=== PATIENT | female | born 1975 | race Caucasian/White ===

== ENCOUNTER 2020-02-15 13:30 | Outpatient (CLI) | payer OTHER, SELFPAY ==
--- NOTE | ~2020-02-15 | XR_ITS ---
XR toe 1st LT min 2V DATE: 02/15/2020 13:46 INDICATION: Left toe pain. Swelling. TECHNIQUE: 4 views COMPARISON: None FINDINGS: Status post bunionectomy; screw through the neck of first metatarsal bone. No fracture, dislocation, periosteal reaction or bone destruction. IMPRESSION: Status post bunionectomy Reviewed, dictated and finalized at location B. IMPRESSION: Status post bunionectomy
[2020-02-15 14:04] LABS: Basophils Absolute Auto 0.1 K/mm3 (0.0-0.1); Basophils Percent Auto 0.8 % (0.2-1.2); Eosinophils Absolute Auto 0.1 K/mm3 (0-0.3); Eosinophils Percent Auto 1.1 % (0-4.4); Hematocrit 38.9 % (37.0-47.0); Hemoglobin 13.5 g/dL (12.0-15.0); Immature Granulocyte Absolute 0.05 K/mm3 (0.00-0.031); Immature Granulocyte Percent A 0.5 % (0-0.5); Lymphocytes Absolute Auto 1.77 K/mm3 (0.9-3.2); Lymphocytes Percent Auto 17.9 % (18.3-44.2); Mean Corpuscular HGB Conc 34.7 g/dl (32-36); Mean Corpuscular Hemoglobin 30.8 pg (26-34); Mean Corpuscular Volume 88.8 fl (80-100); Mean Platelet Volume 10.1 fl (7.4-10.4); Monocytes Absolute Auto 0.7 K/mm3 (0.1-0.6); Monocytes Percent Auto 7.4 % (2.6-8.5); Neutrophils Absolute Auto 7.2 K/mm3 (1.3-6.7); Neutrophils Percent Auto 72.3 % (45.5-73.1); Platelet Count Result 264 k/mm3 (150-375); Red Blood Count 4.38 M/mm3 (4.2-5.4); White Blood Count 9.9 K/mm3 (4.5-10.0)
[2020-02-15 14:15] LABS: Blood Urea Nitrogen 14 mg/dL (7-17); Calcium 8.8 mg/dL (8.4-10.2); Carbon Dioxide 24 mmol/L (22-30); Chloride 104 mmol/L (98-107); Estimated Glomerular Filt Rate > 60; Glucose 119 mg/dL (65-105); Potassium 4.1 mmol/L (3.4-5.0); Sodium 136 mmol/L (137-145); Uric Acid 4.1 mg/dL (2.5-7.5)
== END 2020-02-15 13:31 | disposition home or self-care (01) ==
PROVIDERS: PCP Family Medicine; Visit Provider Nurse Practitioner Family
DX: M79.675 Pain in left toe(s) (principal); M79.89 Other specified soft tissue disorders
CPT/HCPCS: 36415; 73660; 80048; 84550; 85025

== ENCOUNTER 2020-02-16 13:01 | Outpatient (CLI) | payer OTHER, SELFPAY ==
[2020-02-16 13:37] LABS: CRP 1.8 mg/dL (<1.0); Rheumatoid Factor < 8.6 IU/ML (<12)
[2020-02-16 13:56] LABS: Erythrocyte Sedimentation Rate 25 mm/hr (0-20)
[2020-02-16 14:09] LABS: Free T4 Free Thyroxine 1.13 ng/mL (0.78-2.19)
[2020-02-19 11:47] LABS: ANA Cascade Screen Negative (Negative)
== END 2020-02-16 13:02 | disposition home or self-care (01) ==
PROVIDERS: PCP Family Medicine; Visit Provider Nurse Practitioner Family
DX: M25.40 Effusion, unspecified joint (principal); E03.9 Hypothyroidism, unspecified
CPT/HCPCS: 36415; 84439; 84443; 85652; 86038; 86140; 86430

== ENCOUNTER 2020-05-04 09:37 | Outpatient (CLI) | payer OTHER, SELFPAY ==
--- NOTE | ~2020-05-04 | MM_ITS ---
EXAMINATION: MM screening [facility] BI w mega HISTORY: Screening TECHNIQUE: Craniocaudal and mediolateral oblique 3-D tomosynthesis images were obtained and synthetic 2-D images were generated. CAD analysis was submitted and interpreted. COMPARISON: Comparison to multiple prior studies sequentially, with oldest reviewed study dated 08/15. BREAST PARENCHYMAL COMPOSITION: Breast composed of scattered areas of fibroglandular density. FINDINGS: The left breast is stable without evidence for malignancy. There is a developing cluster of calcifications in the upper aspect of the right breast on MLO view, not seen on CC view. IMPRESSION: 1. Developing cluster of nonspecific right breast calcifications on MLO view. 2. Magnification views are recommended. Additional exaggerated cc views recommended. BI-RADS Category 0: Incomplete: Needs additional imaging evaluation. Reviewed, dictated and finalized at location A. IMPRESSION: 1. Developing cluster of nonspecific right breast calcifications on MLO view. 2. Magnification views are recommended. Additional exaggerated cc views recomme nded. BI-RADS Category 0: Incomplete: Needs additional imaging evaluation.
== END 2020-05-04 09:38 | disposition home or self-care (01) ==
PROVIDERS: PCP Family Medicine; Visit Provider Family Medicine
DX: Z12.31 Encounter for screening mammogram for malignant neoplasm of breast (principal); R92.8 Other abnormal and inconclusive findings on diagnostic imaging of breast
CPT/HCPCS: 77063; 77067

== ENCOUNTER 2020-06-03 13:42 | Outpatient (CLI) | payer OTHER, SELFPAY ==
--- NOTE | ~2020-06-03 | MM_ITS ---
EXAMINATION: MM diagnostic mammo unilat RT HISTORY: Follow-up developing breast calcifications TECHNIQUE: Additional 3-D tomosynthesis images of the right breast were performed and synthetic 2-D i mages were generated. CAD analysis was submitted and interpreted. COMPARISON: 05/04/2020 BREAST PARENCHYMAL COMPOSITION: Breast composed of scattered areas of fibroglandular density. FINDINGS: There is a developing cluster of pleomorphic calcifications in the upper aspect of the righ t breast on MLO and mediolateral views. These calcifications were not seen on CC view. IMPRESSION: 1. Developing clustered pleomorphic right breast calcifications superior aspect of the right breast. 2. Stereotactic right breast biopsy recommended. BI-RADS category 4, suspicious findings. Reviewed, dictated and finalized at location A. 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
== END 2020-06-03 13:43 | disposition home or self-care (01) ==
LOC: ANHIMG 13:44
PROVIDERS: PCP Family Medicine; Visit Provider Nurse Practitioner Family
DX: R92.8 Other abnormal and inconclusive findings on diagnostic imaging of breast (principal)
CPT/HCPCS: 77065

== ENCOUNTER 2020-06-20 10:50 | Outpatient (CLI) | payer OTHER, SELFPAY ==
--- NOTE | ~2020-06-20 | MM_ITS ---
MM consultation DATE: 06/20/2020 11:01 INDICATION: Patient presented for stereotactic biopsy of calcifications reported as developing clust ered pleomorphic calcifications in the upper aspect of the right breast on MLO and ML views. TECHNIQUE: Digital right rotated lateral craniocaudal view and magnification view. COMPARISON: 06/03/2020 diagnostic right mammogram 05/04/2020 bilateral digital screening mammogram 01/22/2019 diagnostic bilateral digital mammogram 01/02/2019 bilateral digital screening mammogram FINDINGS: Patient has had previous breast surgical procedure. In the very posterior aspect of the mid upper right breast is an area of fat density with calcificati ons, consistent with benign calcified fat necrosis. IMPRESSION: BI-RADS Category 2: Benign calcifications of fat necrosis Recommendation: Routine mammographic screening Stereotactic biopsy is not indicated for these benign calcifications. Reviewed, dictated and finalized at Location A. Reviewed, dictated and finalized at location A. 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
== END 2020-06-20 10:51 | disposition home or self-care (01) ==
PROVIDERS: PCP Family Medicine; Visit Provider Family Medicine
DX: R92.1 Mammographic calcification found on diagnostic imaging of breast (principal)
CPT/HCPCS: 99199

== ENCOUNTER 2020-09-13 10:05 | Outpatient (CLI) | payer OTHER, SELFPAY ==
--- NOTE | 2020-09-13 10:19 | ECG_ITS ---
Measurements Intervals [place] Rate: 53 P: 35 SD: 147 QRS: 16 QRSD: 94 T: 6 QT: 450 QTc: 423 Interpretive Statements SINUS BRADYCARDIA BASELINE ARTIFACT- II, III, AVF BORDERLINE ECG Electronically Signed On 09-13-2020 10:30:50 AIR SAW OPERATOR by Ok Pino D.O.
[2020-09-13 10:39] LABS: Hematocrit 42.1 % (37.0-47.0); Hemoglobin 14.4 g/dL (12.0-15.0); Mean Corpuscular HGB Conc 34.2 g/dl (32-36); Mean Corpuscular Volume 90.5 fl (80-100); Mean Platelet Volume 10.4 fl (7.4-10.4); Platelet Count Result 272 k/mm3 (150-375); Red Blood Count 4.65 M/mm3 (4.2-5.4); Red Cell Distribution Width 11.7 % (11.5-14.5); White Blood Count 7.8 K/mm3 (4.5-10.0)
[2020-09-13 10:50] LABS: Cholesterol 226 mg/dL (0-200); HDL Direct 47 mg/dL; Magnesium 1.7 mg/dL (1.6-2.3); Triglycerides 189 mg/dL (<150)
[2020-09-13 11:01] LABS: LDL Cholesterol Direct 150 mg/dL
[2020-09-13 16:05] LABS: Vitamin D 25 Hydroxy 32.2 ng/mL
== END 2020-09-13 10:06 | disposition home or self-care (01) ==
PROVIDERS: PCP Family Medicine; Visit Provider Physician Assistant Medical
DX: E55.9 Vitamin D deficiency, unspecified (principal); R25.2 Cramp and spasm; E03.9 Hypothyroidism, unspecified; Z13.220 Encounter for screening for lipoid disorders; I10 Essential (primary) hypertension; R07.9 Chest pain, unspecified; R94.31 Abnormal electrocardiogram [ECG] [EKG]
CPT/HCPCS: 36415; 80061; 82306; 83735; 84443; 85027; 93005

== ENCOUNTER 2020-09-22 07:37 | Outpatient (CLI) | payer OTHER, SELFPAY ==
--- NOTE | 2020-09-22 07:41 | ECHO_ITS ---
Patient Info Name: Jolene Kapoor Age: 44 years : 1975 Gender: Female Ht: 60 in Wt: 180 lbs BSA: 1.90 m2 HR: 60 bpm BP: 214 / 131 mmHg Technical Quality: Good Exam Date: 09/22/2020 8:03 AM Exam Location: [facility] Patient Status: Outpatient Admit Date: 09/22/2020 Staff Ordering Physician: Galina Hammer PAC Venereal Disease Investigator: Hernán Holloway RDCS, RT Attending Provider: Galina Hammer Referring Physician: Jaquelin SMITH; Exam Type: CA echo doppler color flow Study Info Indications I10 - Essential (primary) hypertension R01.1 - Cardiac murmur, unspecified Complete two-dimensional, color flow and Doppler transthoracic echocardiogram is performed. Strain analysis performed. Summary 1. Complete two-dimensional, color flow and Doppler transthoracic echocardiogram is performed. 2. Left ventricular chamber dimension is normal. 3. Left ventricular systolic function is normal, estimated at 65-70%. 4. The left ventricular diastolic function is grade II diastolic dysfunction. 5. E/e' 11 is mildly elevated. 6. Global longitudinal strain is normal at -17.3%. 7. Left atrial chamber dimension is mildly enlarged. 8. There is mild mitral valve regurgitation. Left Ventricle E/e' 11 is mildly elevated. Global longitudinal strain is normal at -17.3%. Left ventricular chamber dimension is normal. Left ventricular systolic function is normal, estimated at 65-70%. The left ventricular diastolic function is grade II diastolic dysfunction. Right Ventricle Right ventricular chamber dimension is normal. Right ventricular systolic function is normal. Left Atria Left atrial chamber dimension is mildly enlarged. Right Atria Right atrial chamber dimension is normal. Aortic Valve The aortic valve is trileaflet. There is no aortic valve stenosis. There is no aortic valve regurgitation. Pulmonic Valve There is no pulmonic regurgitation. Mitral Valve There is no mitral valve stenosis. There is mild mitral valve regurgitation. Tricuspid Valve There is no tricuspid valve regurgitation. Pericardium/Pleural There is no pericardial effusion. Inferior Vena Cava Normal inferior vena cava with >50% collapse upon inspiration consistent with normal right atrial pressure, 5 mmHg. Aorta The aortic root size at the sinus of Valsalva is normal. Left Ventricular Outflow Tract Name Value Normal LVOT 2D LVOT Diameter 1.9 cm LVOT Doppler LVOT Peak Gradient 6 mmHg LVOT Mean Gradient 3 mmHg LVOT VTI 30 cm LVOT VTI/AV VTI Ratio 0.7 LVOT Stroke Volume 86 ml LVOT CO 4.9 l/min LVOT CI 2.6 l/min/m2 Mitral Valve Name Value Normal MV Doppler
== END 2020-09-22 07:38 | disposition home or self-care (01) ==
PROVIDERS: PCP Family Medicine; Visit Provider Physician Assistant Medical
DX: R01.1 Cardiac murmur, unspecified (principal); I10 Essential (primary) hypertension; R07.9 Chest pain, unspecified
CPT/HCPCS: 93306

== ENCOUNTER 2020-09-27 10:18 | Outpatient (CLI) | payer OTHER, SELFPAY ==
[2020-10-01 16:41] LABS: ANA Cascade Screen Negative (Negative)
== END 2020-09-27 10:19 | disposition home or self-care (01) ==
PROVIDERS: PCP Family Medicine; Visit Provider Physician Assistant Medical
DX: R61 Generalized hyperhidrosis (principal)
CPT/HCPCS: 36415; 86038

== ENCOUNTER 2022-09-13 17:04 | Outpatient (CLI) | payer OTHER, SELFPAY ==
--- NOTE | ~2022-09-13 | MM_ITS ---
EXAMINATION: MM screening [facility] BI w mega HISTORY: Screening mammogram TECHNIQUE: Craniocaudal and mediolateral oblique 3-D tomosynthesis images were obtained and synthetic 2-D images were generated. CAD analysis was submitted and interpreted. COMPARISON: 06/03/2020 diagnostic right mammogram 05/04/2020, 01/22/2019, 01/02/2019, 08/19/2017, 08/15/2016 bilateral mammogram examinations BREAST PARENCHYMAL COMPOSITION: There are scattered areas of fibroglandular density. FINDINGS: Occasional bilateral benign calcifications are noted. There is no evidence of suspicious ma ss, calcification, or architectural distortion to suggest malignancy in either breast. There has been no suspicious interval change. IMPRESSION: 1. No mammographic evidence of malignancy. 2. Recommend routine screening mammography in one year. BI-RADS Category 2: Benign finding(s). Reviewed, dictated and finalized at location A. 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
== END 2022-09-13 17:05 | disposition home or self-care (01) ==
PROVIDERS: PCP Family Medicine; Visit Provider Family Medicine
DX: Z12.31 Encounter for screening mammogram for malignant neoplasm of breast (principal)
CPT/HCPCS: 77063; 77067

== ENCOUNTER 2023-05-07 12:31 | Outpatient (CLI) | payer OTHER, SELFPAY ==
--- NOTE | 2023-05-07 12:37 | ECHO_ITS ---
Patient Info Name: Jolnee Kapoor Age: 47 years : 1975 Gender: Female Ht: 60 in Wt: 163 lbs BSA: 1.80 m2 HR: 71 bpm BP: 126 / 96 mmHg Technical Quality: Fair Exam Date: 05/07/2023 12:44 PM Exam Location: [facility] Patient Status: Outpatient Admit Date: 05/07/2023 Staff Ordering Physician: Galina Hammer PAC Manager Testing: Annette Viera RDCS Attending Provider: Galina Hammer Referring Physician: Jaquelin SMITH; Exam Type: CA echo doppler color flow Study Info Indications I51.89 - Other ill-defined heart diseases Complete two-dimensional, color flow and Doppler transthoracic echocardiogram is performed. Summary 1. Complete two-dimensional, color flow and Doppler transthoracic echocardiogram is performed. 2. Left ventricular chamber dimension is normal. 3. Left ventricular systolic function is normal, estimated at 60-65%. 4. There is mild concentric increased left ventricular wall thickness. 5. The left ventricular diastolic function is grade I diastolic dysfunction. 6. E/e' 7 is not elevated. 7. There is mild aortic valve sclerosis. 8. No pulmonary hypertension, estimated pulmonary arterial systolic pressure is 25 mmHg. Left Ventricle E/e' 7 is not elevated. Left ventricular chamber dimension is normal. Left ventricular systolic function is normal, estimated at 60-65%. There is mild concentric increased left ventricular wall thickness. The left ventricular diastolic function is grade I diastolic dysfunction. Right Ventricle Right ventricular chamber dimension is normal. Right ventricular systolic function is normal. Left Atria Left atrial chamber dimension is normal. Right Atria Right atrial chamber dimension is normal. Aortic Valve The aortic valve is trileaflet. There is mild aortic valve sclerosis. There is no aortic valve stenosis. There is no aortic valve regurgitation. Pulmonic Valve There is no pulmonic regurgitation. Mitral Valve There is no mitral valve stenosis. There is no mitral valve regurgitation. Tricuspid Valve There is no tricuspid valve regurgitation. No pulmonary hypertension, estimated pulmonary arterial systolic pressure is 25 mmHg. Pericardium/Pleural There is no pericardial effusion. Inferior Vena Cava Normal inferior vena cava with >50% collapse upon inspiration consistent with normal right atrial pressure, 5 mmHg. Aorta The aortic root size at the sinus of Valsalva is normal. Left Ventricular Outflow Tract Name Value Normal LVOT 2D LVOT Diameter 1.9 cm LVOT Doppler LVOT Peak Gradient 4 mmHg LVOT Mean Gradient 3 mmHg LVOT VTI 22 cm LVOT VTI/AV VTI Ratio 0.8 LVOT Stroke Volume 60 ml LVOT CO 4.1 l/min LVOT CI 2.3 l/min/m2 Pulmonic Valve Name Value Normal RVOT Doppler R
== END 2023-05-07 12:32 | disposition home or self-care (01) ==
PROVIDERS: PCP Family Medicine; Visit Provider Physician Assistant Medical
DX: I51.89 Other ill-defined heart diseases (principal)
CPT/HCPCS: 93306

== ENCOUNTER 2023-10-07 12:24 | Outpatient (CLI) | payer OTHER, SELFPAY ==
--- NOTE | ~2023-10-07 | MM_ITS ---
EXAMINATION: MM screening [facility] BI w mega HISTORY: Screening mammogram TECHNIQUE: Craniocaudal and mediolateral oblique 3-D tomosynthesis images were obtained and synthetic 2-D images were generated. CAD analysis was submitted and interpreted. COMPARISON: September 13, 2022 bilateral screening mammogram 06/03/2020 diagnostic right mammogram 05/04/2020 bilateral screening mammogram BREAST PARENCHYMAL COMPOSITION: There are scattered areas of fibroglandular density... FINDINGS: Occasional benign calcifications. There is no evidence of suspicious mass, calcification, o r architectural distortion to suggest malignancy in either breast. There has been no suspicious inter madi change. IMPRESSION: 1. No mammographic evidence of malignancy. 2. Recommend routine screening mammography in one year. BI-RADS Category 2: Benign finding(s). Reviewed, dictated and finalized at location A.
== END 2023-10-07 12:25 ==
PROVIDERS: PCP Family Medicine; Visit Provider Family Medicine
DX: Z12.31 Encounter for screening mammogram for malignant neoplasm of breast (principal)
CPT/HCPCS: 77063; 77067

== ENCOUNTER 2024-04-01 17:29 | Emergency (ER) | payer OTHER, SELFPAY ==
--- NOTE | ~2024-04-01 | XR_ITS ---
EXAMINATION: XR wrist LT min 3V DATE: 04/01/2024 18:00 INDICATION: Left wrist pain. TECHNIQUE: 4 views of left wrist were obtained. COMPARISON: None. FINDINGS: Alignment is normal. There is a 2 mm focus of ossification dorsal to the carpus on the late ral view. Joint spaces are normal. IMPRESSION: 1. 2 mm ossification dorsal to the carpus on the lateral view, which may be an age-indeterminate avul jovanni fracture of dorsal pole of triquetrum. Reviewed, dictated and finalized at location A. IMPRESSION: 1. 2 mm ossification dorsal to the carpus on the lateral view, which may be an age-indeterminate avulsion fracture of dorsal pole of triquetrum.
--- NOTE | 2024-04-01 17:30 | ED.UPPEXIN ---
HPI - Extremity Injury (Upper) General Chief Complaint: Extremity Problem,Nontraumatic Stated Complaint: L WRIST/HAND PAIN/SWELLING Time Seen by Provider: 04/01/24 17:30 Source: patient Mode of arrival: ambulatory Limitations: no limitations History of Present Illness HPI narrative: Jolene is a 40-year-old female patient presenting to the clinic today with complaints of left wrist/hand pain and swelling that just started this morning. She reports no known injury. States the pain is to the top of the wrist and radiates into her hand when she flexes or extends the wrist. No obvious swelling Related Data Home Medications Medication Instructions Recorded Confirmed cholecalciferol (vitamin D3) 75 mcg PO DAILY 04/09/23 11/29/23 cyanocobalamin (vitamin B-12) 100 mcg subcut WEEKLY 08/09/23 11/29/23 1,000 mcg/mL injection solution Allergies Allergy/AdvReac Type Severity Reaction Status Date / Time lisinopril Allergy Intermediate angiodema Verified 11/29/23 11:11 Review of Systems Review of Systems: Pertinent positives per HPI. Patient denies any fever, chills, rash, headache, visual changes, dizziness, cough, runny nose, sore throat, shortness of breath, chest pain, palpitations, nausea, vomiting, diarrhea, constipation, abdominal pain, or any urinary issues. [facility] Past Medical History Medical History Adult BMI 32.0-32.9 kg/sq m Adult BMI 34.0-34.9 kg/sq m BMI 29.0-29.9,adult BMI 35.0-35.9,adult BMI 36.0-36.9,adult Macular hole of left eye Sinusitis Wheezing Surgical History Surgical History Hx of colonoscopy Family History Family History Father No problems noted. Mother No problems noted. 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 There is no relevant family history pertinent to the patient complaint. Exam Narrative: General: Well-developed, well nourished, in no apparent distress Head: Normocephalic, atraumatic. Cardio: Regular rate and rhythm, s1 and s2 normal, no murmur appreciated. Resp: Clear to auscultation bilaterally, no rhonchi, rales, wheezing or rubs. Musculoskeletal: No deformity, tender to palpation over the dorsal wrist, pain with flexion and extension of the left wrist, no obvious swelling, grossly normal range of motion, muscle strength strong and equal, peripheral pulse strong, no edema, no cyanosis, normal gait and station Course Course Emergency Course: Portions of this record may have been created with voice recognition software. Level of Care: Express Care Visit Vital Signs Vital signs: Vital Signs Temperature 36.6 C 04/01/24 17:41 Pulse Rate 68 04/01/24 17:41 Respiratory Rate 16 04/01/24 17:41 Blood Pressure 162/99 H 04/01/24 17:41 Pulse Oximetry 99 04/01/24 17:41 Temperature 36.6 C 04/01/24 17:41 Pulse Rate 68 04/01/24 17:41 Respiratory Rate 16 04/01/24 17:41 Blood Pressure
[2024-04-01 17:41] VITALS: BP 162/99; PULSE 68; RESP 16; TEMP 36.6; O2SAT 99
--- NOTE | 2024-04-01 18:00 | PC.NURSE ---
PT REQUESTED XRAY OF WRIST.
== END 2024-04-01 18:15 | disposition home or self-care (01) ==
PROVIDERS: Emergency Provider Nurse Practitioner Family; PCP Family Medicine
DX: M25.532 Pain in left wrist (principal)
CPT/HCPCS: 73110; 99213; G0463

== ENCOUNTER 2024-04-02 07:12 | Emergency (ER) | payer OTHER, SELFPAY ==
--- NOTE | ~2024-04-02 | CT_ITS ---
EXAMINATION: CT wrist LT w con DATE: 04/02/2024 08:32 INDICATION: Atraumatic severe left wrist pain TECHNIQUE: High resolution computed tomography (CT) of the left wrist was performed with 100 mL Omnip aque-350 intravenous contrast. Additional sagittal and coronal reconstructions were performed. Automa elsa exposure control and iterative reconstruction technique were employed. The dose-length product wa s 440.70 mGy-cm. COMPARISON: Radiograph dated 04/01/2024 FINDINGS: Bone alignment is normal. No acute fracture. Again seen is a tiny corticated ossific density dorsal t o the triquetrum without evident donor site which could represent either a chronic avulsion fracture or heterotopic ossicle. Mild osteoarthritis at the distal radioulnar joint. Remaining joint spaces ap pear relatively preserved. Lytic lesion with sclerotic margins at the scaphoid waist which extends to the volar margin of the articular surface at the midcarpal joint and which could represent either a geode/degenerative subchondral cyst or chronic erosion. Additional potential small chronic erosions a t the head of the third metacarpal and the base of the fifth proximal phalanx. There is subtle increa sed density along the periphery of the extensor carpi ulnaris tendon at the level of the proximal car pal row which could represent enhancing synovitis or subtle dystrophic calcification. Soft tissues ar e otherwise unremarkable. IMPRESSION: 1. No acute osseous abnormality. 2. A few small lytic lesion with corticated margins at the scaphoid, and third metacarpal and base of the fifth proximal phalanx which could represent degenerative subchondral cysts or chronic erosions. 3. Subtle increased attenuation along the periphery of the extensor carpi ulnaris tendon at the level of the proximal carpal row which could represent either enhancing tenosynovitis or dystrophic calcif ication present in the setting of gout. Reviewed, dictated and finalized at location A. IMPRESSION: 1. No acute osseous abnormality. 2. A few small lytic lesion with corticated margins at the scaphoid, and third metacarpal and base of the fifth proximal phalanx which could represent degener ative subchondral cysts or chronic erosions. 3. Subtle increased attenuation along the periphery of the extensor carpi ulnar is tendon at the level of the proximal carpal row which could represent either enhancing tenosynovitis or dystrophic calcification present in the setting of g out.
[2024-04-02 07:45] VITALS: BP 178/99; PULSE 63; RESP 18; TEMP 36.5; O2SAT 100
--- NOTE | 2024-04-02 07:52 | ED.UPPEXIN ---
HPI - Extremity Injury (Upper) General Chief Complaint: Extremity Injury, Upper Stated Complaint: left hand/wrist pain Time Seen by Provider: 04/02/24 07:18 History of Present Illness HPI narrative: Patient noticed severe pain to her left wrist yesterday, went to an urgent care where an x-ray is done showing a possible fracture; she has no recollection of injury other than potentially having closed a door hard yesterday. Pain with movement, no fevers or chills. Took ibuprofen earlier which helped. Related Data Home Medications Medication Instructions Recorded Confirmed cholecalciferol (vitamin D3) 75 mcg PO DAILY 04/09/23 11/29/23 cyanocobalamin (vitamin B-12) 100 mcg subcut WEEKLY 08/09/23 11/29/23 1,000 mcg/mL injection solution Allergies Allergy/AdvReac Type Severity Reaction Status Date / Time lisinopril Allergy Intermediate angiodema Verified 11/29/23 11:11 Review of Systems Review of Systems: All systems reviewed & are unremarkable except as noted in HPI and below PMFSH Past Medical History Medical History Adult BMI 32.0-32.9 kg/sq m Adult BMI 34.0-34.9 kg/sq m BMI 29.0-29.9,adult BMI 35.0-35.9,adult BMI 36.0-36.9,adult Macular hole of left eye Sinusitis Wheezing Surgical History Surgical History Hx of colonoscopy Family History Family History Father No problems noted. Mother No problems noted. 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 EYES: EOMI, conjunctiva normal ENT: Hearing grossly intact LUNGS: Nonlabored breathing. HEART: Normal radial pulse ABD: Nondistended EXT: Holding wrist, there is slight swelling over the left wrist ulnar dorsal wrist with tenderness, pain with movement at wrist SKIN: Slight swelling left wrist ulnar NEURO: [Alert and oriented x 3. No gross focal sensory or strength deficits.] PSYCH: Normal affect Course Vital Signs Vital signs: Vital Signs Temperature 97.7 F 04/02/24 07:45 Pulse Rate 63 04/02/24 07:45 Respiratory Rate 18 04/02/24 07:45 Blood Pressure 178/99 H 04/02/24 07:45 Pulse Oximetry 100 04/02/24 07:45 Oxygen Delivery Room Air 04/02/24 07:45 Temperature 98 F 04/02/24 10:23 Pulse Rate 60 04/02/24 10:23 Respiratory Rate 16 04/02/24 10:23 Blood Pressure 180/95 H 04/02/24 10:23 Pulse Oximetry 96 04/02/24 10:23 Oxygen Delivery Room Air 04/02/24 07:45 MDM - Extremity Injury (Upper) MDM Narrative Medical decision making narrative: Patient presenting here with wrist pain that is atraumatic, x-ray unremarkable from yesterday, neurovascularly intact but pain with movement of the, would like further evaluation at this time so did obtain a CT wrist, I did discuss the findings with hand surgery on-call who suspects likely tendinitis, recommends anti-inflammatories with follow-up in
[2024-04-02 08:05] LABS: Basophils Absolute Auto 0.1 K/mm3 (0.0-0.1); Eosinophils Absolute Auto 0.1 K/mm3 (0-0.3); Eosinophils Percent Auto 1.4 % (0-4.4); Hematocrit 43.3 % (37.0-47.0); Hemoglobin 14.5 g/dL (12.0-15.0); Immature Granulocyte Absolute 0.02 K/mm3 (0.00-0.031); Immature Granulocyte Percent A 0.3 % (0-0.5); Lymphocytes Absolute Auto 1.57 K/mm3 (0.9-3.2); Lymphocytes Percent Auto 22.7 % (18.3-44.2); Mean Corpuscular HGB Conc 33.5 g/dl (32-36); Mean Corpuscular Hemoglobin 29.7 pg (26-34); Mean Corpuscular Volume 88.5 fl (80-100); Mean Platelet Volume 10.2 fl (7.4-10.4); Monocytes Absolute Auto 0.5 K/mm3 (0.1-0.6); Monocytes Percent Auto 7.1 % (2.6-8.5); Neutrophils Absolute Auto 4.7 K/mm3 (1.3-6.7); Neutrophils Percent Auto 67.5 % (45.5-73.1); Platelet Count Result 253 k/mm3 (150-375); Red Blood Count 4.89 M/mm3 (4.2-5.4); Red Cell Distribution Width 11.8 % (11.5-14.5); White Blood Count 6.9 K/mm3 (4.5-10.0)
[2024-04-02 08:12] LABS: Anion Gap 13 mmol/L (4-12); Blood Urea Nitrogen 15 mg/dL (7-17); Calcium 9.1 mg/dL (8.4-10.2); Carbon Dioxide 26 mmol/L (22-30); Chloride 101 mmol/L (98-107); Estimated CRCL calculation 74 ml/min; Estimated Glomerular Filt Rate > 60; Glucose 96 mg/dL (65-110); Potassium 3.9 mmol/L (3.4-5.0); Sodium 140 mmol/L (137-145)
[2024-04-02 08:48] VITALS: BP 189/92; PULSE 59; RESP 18; O2SAT 100
[2024-04-02 09:45] VITALS: BP 184/93; PULSE 54; RESP 16; O2SAT 100
[2024-04-02] MEDS: KETOROLAC 15 MG/ML VIAL (*BKC) IV PUSH (09:51)
[2024-04-02 10:23] VITALS: BP 180/95; PULSE 60; RESP 16; TEMP 36.6; O2SAT 96
== END 2024-04-02 10:23 | disposition home or self-care (01) ==
PROVIDERS: Emergency Provider Emergency Medicine; PCP Family Medicine
DX: M25.532 Pain in left wrist (principal)
CPT/HCPCS: 29125; 36415; 73201; 80048; 85025; 96374; 99284; J1885; Q9967

== ENCOUNTER 2024-10-20 16:18 | Outpatient (CLI) | payer OTHER, SELFPAY ==
--- NOTE | ~2024-10-20 | MM_ITS ---
EXAMINATION: MM screening [facility] BI w mega HISTORY: Screening TECHNIQUE: Craniocaudal and mediolateral oblique 3-D tomosynthesis images were obtained and synthetic 2-D images were generated. CAD analysis was submitted and interpreted. COMPARISON: 10/07/2023 and dating back to 05/04/2020 BREAST PARENCHYMAL COMPOSITION: There are scattered areas of fibroglandular density. FINDINGS: Punctate calcifications detected bilaterally, stable and benign in appearance, primarily de rmal in origin. Stable parenchymal pattern without suspicious microcalcifications, architectural distortion, discrete masses or significant asymmetry. IMPRESSION: 1. No mammographic evidence of malignancy. 2. Recommend routine screening mammography in one year. BI-RADS Category 2: Benign finding(s). Reviewed, dictated and finalized at location A.
== END 2024-10-20 16:19 | disposition home or self-care (01) ==
LOC: MICIMG 16:19
PROVIDERS: PCP Family Medicine; Visit Provider Family Medicine
DX: Z12.31 Encounter for screening mammogram for malignant neoplasm of breast (principal)
CPT/HCPCS: 77063; 77067

== ENCOUNTER 2025-07-15 10:29 | Outpatient (CLI) | payer OTHER, SELFPAY ==
--- NOTE | ~2025-07-15 | XR_ITS ---
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 Findings: Postsurgical changes first metatarsal, no acute fracture is identified No significant degenerative changes. Soft tissues unremarkable. Impression: No acute fracture or malalignment. Reviewed, dictated and finalized at location P. MOLDING MACHINE OPERATOR Impression: No acute fracture or malalignment.
== END 2025-07-15 10:30 | disposition home or self-care (01) ==
LOC: MICIMG 10:31
PROVIDERS: PCP Family Medicine
DX: M79.671 Pain in right foot (principal)
CPT/HCPCS: 73630